=== PATIENT | male | born 1980 ===

== ENCOUNTER 2021-03-18 14:58 | Emergency (ER) | payer SELFPAY ==
[2021-03-18] MEDS ORDERED: ASPIRIN 325 MG TAB PO ONE (15:19)
[2021-03-18 15:47] LABS: Basophils # (Auto) 0.1 K/mm3 (0.0-0.1); Basophils % (Auto) 0.9 % (0.0-1.8); Eosinophils # (Auto) 0.2 K/mm3 (0.0-0.4); Eosinophils % (Auto) 2.1 % (0.0-4.3); Hemoglobin 15.1 gm/dl (11.8-15.2); Lymphocytes # (Auto) 1.6 K/mm3 (1.2-5.4); Lymphocytes % (Auto) 14.2 % (13.4-35.0); Monocytes # (Auto) 0.9 K/mm3 (0.0-0.8); Monocytes % (Auto) 7.6 % (0.0-7.3)
[2021-03-18 15:50] LABS: Mean Corpuscular HGB Conc 35 % (32-34); Mean Corpuscular Volume 92 fl (84-94); Platelet Count 345 K/mm3 (140-440); Red Blood Count 4.81 M/mm3 (3.65-5.03); Red Cell Distribution Width 13.7 % (13.2-15.2)
--- NOTE | 2021-03-18 15:55 | XRay Report ---
CHEST 2 VIEWS INDICATION / CLINICAL INFORMATION: Chest pain. Pain radiating to left arm with difficulty breathing. COMPARISON: None available. FINDINGS: SUPPORT DEVICES: None. HEART / MEDIASTINUM: No significant abnormality. LUNGS / PLEURA: No significant pulmonary or pleural abnormality. No pneumothorax. ADDITIONAL FINDINGS: No significant additional findings. IMPRESSION: 1. No acute findings. Signer Name: Fabrizio Chambers MD Signed: 03/18/2021 3:51 PM Workstation Name: [id number]
[2021-03-18 16:00] LABS: Alanine Aminotransferase 44 units/L (7-56); Albumin 4.1 g/dL (3.9-5); BUN/Creatinine Ratio 14; Blood Urea Nitrogen 14 mg/dL (9-20); Calcium 9.1 mg/dL (8.4-10.2); Hemolysis Index 26
[2021-03-18 22:07] VITALS: BP 139/85
--- NOTE | 2021-03-18 22:32 | Emergency Department Report ---
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 This is a 40-year-old male history of hypertension who presents with sticking chest pain left hand numbness this morning while at work. Pain moderate in severity. Pain has been persistent throughout the day. Numbness in the hand has resolved. He denies headache, paralysis, abdominal pain. He also has shortness of breath. He denies fever. He has been followed by physician in [place]. He takes amlodipine and losartan. He has been in the [place] for 4 [place]. No family history of heart disease. MD Complaint: chest pain -: Gradual, This morning Onset: during rest Severity: moderate Severity scale (0 -10): 8 Quality: other (Sticking sensation) Consistency: constant Improves With: nothing Worsens With: nothing Other Symptoms: other (Shortness of breath hand numbness) Treatments Prior to Arrival: none - Related Data Previous Rx's Medication Instructions Recorded Last Taken Type Losartan [Cozaar] 50 mg PO QDAY 90 Days #90 tablet 03/18/21 Unknown Rx amLODIPine 5 mg PO DAILY 90 Days #90 tab 03/18/21 Unknown Rx Allergies Allergy/AdvReac Type Severity Reaction Status Date / Time No Known Allergies Allergy Unverified 03/18/21 15:15 Heart Score - HEART Score History: Slightly suspicious EKG: Normal Age: < 45 Risk factors: 1-2 risk factors Troponin: < normal limit HEART Score: 1 - EKG Read Time Time EKG Completed: 15:07 EKG Read Time: 15:11 ED Review of Systems ROS: Stated complaint: CHEST PAIN, LEFT ARM PAIN Other details as noted in HPI Comment: All other systems reviewed and negative Constitutional: denies: fever, malaise Respiratory: shortness of breath. denies: cough Cardiovascular: chest pain Gastrointestinal: denies: abdominal pain, nausea, vomiting Skin: denies: rash, lesions ED Past Medical Hx - Past Medical History Previous Medical History?: Yes Hx Hypertension: Yes - Surgical History Past Surgical History?: No - Family History Family history: hypertension - Social History Smoking Status: Never Smoker Substance Use Type: None - Medications Home Medications: Home Medications Medication Instructions Recorded Confirmed Last Taken Type Losartan [Cozaar] 50 mg PO QDAY 90 Days #90 tablet 03/18/21 Unknown Rx amLODIPine 5 mg PO DAILY 90 Days #90 tab 03/18/21 Unknown Rx ED Physical Exam - General Limitations: Language Barrier General appearance: alert, in no apparent distress - Head Head exam: Present: atraumatic, normocephalic - Eye Eye exam: Present: normal appearance - ENT ENT exam: Present: mucous membranes moist - Neck Neck exam: Present: normal inspection, full ROM - Respiratory Respiratory exam: Present: normal lung sounds bilaterally. Absent: respiratory distress, wheezes, rales, rhonchi - Cardiovascular Cardiovascular Exam: Present: regular rate, normal rhythm, normal heart sounds. Absent: systolic murmur, diastolic murmur, rubs, gallop - GI/Abdominal GI/Abdominal exam: Present: soft, normal bowel sounds. Absent: distended, tenderness, guarding, rebound - Rectal Rectal exam: Present: deferred - Extremities Exam Extremities exam: Present: normal inspection - Neurological Exam Neurological exam: Present: alert, oriented X3 - Psychiatric Psychiatric exam: Present: normal affect, normal mood - Skin Skin exam: Present: warm, dry, intact, normal color. Absent: rash ED Course Vital Signs 03/18/21 03/18/21 03/18/21 21:44 21:46 21:48 Pulse Rate 101 H 60 64 Respiratory 13 15 16 Rate Blood Pressure 145/82 O2 Sat by Pulse 100 99 Oximetry 03/18/21 03/18/21 03/18/21 21:50 21:52 21:54 Pulse Rate 68 63 67 Respiratory 13 15 14 Rate Blood Pressure 145/82 145/82 145/82 O2 Sat by Pulse 98 97 96 Oximetry 03/18/21 03/18/21 03/18/21 21:56 21:58 22:00 Pulse Rate 71 70 65 Respiratory 13 13 14 Rate Blood Pressure 139/85 139/85 139/85 O2 Sat by Pulse 99 97 97 Oximetry 03/18/21 03/18/21 22:02 22:04 Pulse Rate 64 64 Respiratory 13 15 Rate Blood Pressure 139/85 139/85 O2 Sat by Pulse 98 96 Oximetry ED Medical Decision Making - Lab Data Result diagrams: 03/18/21 15:25 03/18/21 15:25 Laboratory Results - last 24 hr 03/18/21 03/18/21 03/18/21 15:25 15:25 17:55 WBC 11.5 H RBC 4.81 Hgb 15.1 Hct 44.0 MCV 92 MCH 32 MCHC 35 H RDW 13.7 Plt Count 345 Lymph % (Auto) 14.2 [place] % (Auto) 7.6 H Eos % (Auto) 2.1 Baso % (Auto) 0.9 Lymph # (Auto) 1.6 [place] # (Auto) 0.9 H Eos # (Auto) 0.2 Baso # (Auto) 0.1 Seg Neutrophils % 75.2 H Seg Neutrophils # 8.7 H Sodium 136 L Potassium 4.4 Chloride 101.7 Carbon Dioxide 24 Anion Gap 15 BUN 14 Creatinine 1.0 Estimated GFR > 60 BUN/Creatinine Ratio 14 Glucose 117 H Calcium 9.1 Total Bilirubin 0.20 AST 23 ALT 44 Alkaline Phosphatase 170 H Troponin T < 0.010 < 0.010 Total Protein 6.9 Albumin 4.1 Albumin/Globulin Ratio 1.5 03/18/21 20:58 WBC RBC Hgb Hct MCV MCH MCHC RDW Plt Count Lymph % (Auto) [place] % (Auto) Eos % (Auto) Baso % (Auto) Lymph # (Auto) [place] # (Auto) Eos # (Auto) Baso # (Auto) Seg Neutrophils % Seg Neutrophils # Sodium Potassium Chloride Carbon Dioxide Anion Gap BUN Creatinine Estimated GFR BUN/Creatinine Ratio Glucose Calcium Total Bilirubin AST ALT Alkaline Phosphatase Troponin T < 0.010 Total Protein Albumin Albumin/Globulin Ratio - EKG Data -: EKG Interpreted by [facility] EKG shows normal: sinus rhythm, axis, intervals, QRS complexes, ST-T waves Rate: normal - EKG Data Interpretation: normal EKG 03/18/21 22:29 EKG obtained 1507 EKG interpreted by az Normal sinus rhythm normal rate normal axis normal intervals no ST elevation no ST-T signs of ischemia normal EKG - Radiology Data Radiology results: report reviewed Patient Name: MIRELLA HDZ Gender: Male Date of : 1980 Home Phone: Referring Provider: EDWAR, ED Organization: [facility] Accession Number: [id number] Requested Date: March 18, 2021 15:19 Report Status: Final Requested Procedure: 1 Procedure Description: XR chest routine 2V Modality: XR Findings Reporting MD: Fabrizio Chambers Dictation Time: March 18, 2021 14:51 Line Walker: Not available Cnc Supervisor Date: CHEST 2 VIEWS INDICATION / CLINICAL INFORMATION: Chest pain. Pain radiating to left arm with difficulty breathing. COMPARISON: None available. FINDINGS: SUPPORT DEVICES: None. HEART / MEDIASTINUM: No significant abnormality. LUNGS / PLEURA: No significant pulmonary or pleural abnormality. No pneumothorax. ADDITIONAL FINDINGS: No significant additional findings. IMPRESSION: 1. No acute findings. Signer Name: Fabrizio Chambers MD Signed: 03/18/2021 2:51 PM Workstation Name: [id number] - Medical Decision Making This 40-year-old gentleman who presents with chest pain shortness of breath left hand numbness: Heart score 1. Different diagnosis includes ACS, GERD, chest wall pain, cervical radiculopathy. PERC negative for PE. No indication of life-threatening causes such as dissection pneumothorax. I recommended COVID-19 test. I recommended follow-up with environmental test technician for evaluation of coronary artery disease. Also recommended establishing primary care with outpatient [facility] physician. He received referral to [facility]. I have faxed cardiology referral request to [facility]. he also received referral to outpatient medicine physician. I provided refills for amlodipine and losartan. Patient is discharged home in good condition. 3 serial negative troponin values. CBC chemistry otherwise unremarkable. Temperature triage 98.7 F Vital Signs - 24 hr 03/18/21 03/18/21 03/18/21 21:44 21:46 21:48 Pulse Rate 101 H 60 64 Respiratory 13 15 16 Rate Blood Pressure 145/82 O2 Sat by Pulse 100 99 Oximetry 03/18/21 03/18/21 03/18/21 21:50 21:52 21:54 Pulse Rate 68 63 67 Respiratory 13 15 14 Rate Blood Pressure 145/82 145/82 145/82 O2 Sat by Pulse 98 97 96 Oximetry 03/18/21 03/18/21 03/18/21 21:56 21:58 22:00 Pulse Rate 71 70 65 Respiratory 13 13 14 Rate Blood Pressure 139/85 139/85 139/85 O2 Sat by Pulse 99 97 97 Oximetry 03/18/21 03/18/21 22:02 22:04 Pulse Rate 64 64 Respiratory 13 15 Rate Blood Pressure 139/85 139/85 O2 Sat by Pulse 98 96 Oximetry Critical care attestation.: If time is entered above; I have spent that time in minutes in the direct care of this critically ill patient, excluding procedure time. ED Disposition Clinical Impression: Chest wall pain Disposition: DC-01 TO HOME OR SELFCARE Is pt being admited?: No Does the pt Need Aspirin: No Condition: Stable Instructions: Nonspecific Chest Pain, Adult Prescriptions: amLODIPine 5 mg PO DAILY 90 Days #90 tab Losartan [Cozaar] 50 mg PO QDAY 90 Days #90 tablet Referrals: VICKY RAMÍREZ MD [Staff Physician] - 3-5 Days TAISHA HUTTON MD [Staff Physician] - 3-5 Days
--- NOTE | 2021-03-24 10:40 | Electrocardiograph Report ---
[facility] Test Date: 2021-03-18 Test Time: 15:07:23 Pat Name: MIRELLA HDZ Department: Room: Gender: M Investigation Lieutenant: : 1980 Requested By: MIRIAM RILEY Order Number: [id number] Reading MD: Axel Nunez Measurements Intervals [place] Rate: 68 P: 55 MS: 143 QRS: 66 QRSD: 88 T: 55 QT: 365 QTc: 389 Interpretive Statements Sinus rhythm No previous ECG available for comparison Electronically Signed On 03-24-2021 10:40:32 EDT by Axel Nunez
== END 2021-03-18 23:11 | disposition home or self-care (01) ==
LOC: ED 14:58
DX: R07.89 Other chest pain (principal); I10 Essential (primary) hypertension; Z79.899 Other long term (current) drug therapy
CPT/HCPCS: 36415; 71046; 80053; 84484; 85025; 93005